=== PATIENT | female | born 1990 | race Caucasian/White ===

== ENCOUNTER 2018-03-06 13:45 | Inpatient (IN) | payer OTHER, MEDICAID ==
[~2018-03-06] VITALS: Ht 167.6 cm; Wt 101.6 kg
[2018-03-06] MEDS ORDERED: OXYTOCIN/0.9 % SODIUM CHLORIDE 1,000 ML IV SCH (14:38)
[2018-03-06] MEDS ORDERED: TERBUTALINE SULFATE 1 MG/ML VIAL SUBCUT ONE (14:45)
[2018-03-06] MEDS ORDERED: NALBUPHINE HCL 10 MG/ML AMP IM PRN (14:45)
[2018-03-06] MEDS ORDERED: NALBUPHINE HCL 10 MG/ML AMP IVP PRN (14:45)
[2018-03-06 15:25] VITALS: BP_SYST 133
[2018-03-06 15:37] LABS: BASOPHILS % (AUTO) 0.1 % (0.0-2.0); EOSINOPHILS # (AUTO) 0.2 K/uL (0.0-0.4); EOSINOPHILS % (AUTO) 1.2 % (0.0-4.0); HEMATOCRIT 39.8 % (36-48); LYMPHOCYTES # (AUTO) 2.3 K/uL (1.0-5.5); LYMPHOCYTES % (AUTO) 17.1 % (20.5-51.5); MEAN CORPUSCULAR HEMOGLOBIN 29 pg (27-31); MEAN CORPUSCULAR HGB CONC 33 % (32-36); MEAN CORPUSCULAR VOLUME 88 fL (79.0-98.0); MONOCYTES # (AUTO) 0.9 K/uL (0.0-1.0); MONOCYTES % (AUTO) 6.3 % (1.7-9.3); NEUTROPHILS # (AUTO) 10.2 K/uL (1.8-7.7); NEUTROPHILS % (AUTO) 75.3 % (40.0-70.0); PLATELET COUNT (AUTO) 346 K/uL (130-430); RED BLOOD CELL COUNT(AUTO) 4.53 MIL/uL (4.2-6.2); RED CELL DISTRIBUTION WIDTH 17.1 % (9.0-15.0); WHITE BLOOD COUNT (AUTO) 13.6 K/uL (4.8-10.8)
[2018-03-06] MEDS: LR 1,000 ML IV SCH (22:30)
[2018-03-07] MEDS: LR 1,000 ML IV SCH ×2 (04:50→06:35)
[2018-03-07] MEDS ORDERED: FENT2mCg/mL-ROPIVA0.2%/NS EPID 150 ML EP SCH (09:30)
[2018-03-07] MEDS ORDERED: ROPIVACAINE 0.2% 100 ML ONE ×2 (09:32→16:54)
[2018-03-07] MEDS ORDERED: fentaNYL CITRATE/PF 100 MCG/2 ML AMP ONE (09:32)
[2018-03-07] MEDS ORDERED: D5LR 1,000 ML IV ONE (17:15)
[2018-03-07] MEDS ORDERED: CEFAZOLIN 2 GM IVPB PREMIX 50 ML IV ONE (19:30)
[2018-03-07] MEDS ORDERED: LR 1,000 ML IV SCH (19:52)
[2018-03-07] MEDS ORDERED: OXYTOCIN/0.9 % SODIUM CHLORIDE 1,000 ML IV ONE (19:52)
[2018-03-07] MEDS ORDERED: MORPHINE SULFATE 10 MG/ML VIAL IVP PRN (20:00)
[2018-03-07] MEDS ORDERED: OXYCODONE/ACETAMINOPHEN 5-325 TABLET PO PRN (20:00)
[2018-03-07] MEDS ORDERED: LANOLIN 7 GM OINT. TP PRN (20:00)
[2018-03-07] MEDS ORDERED: BISACODYL 10 MG/SUPPOSITORY RC PRN (20:00)
[2018-03-07] MEDS ORDERED: ANUSOL 1 EA SUPP.RECT (PREPARATION H) RC PRN (20:00)
[2018-03-07] MEDS ORDERED: MORPHINE SULFATE 10MG/10ML PF AMP EP SCH (20:30)
[2018-03-07] MEDS ORDERED: NALBUPHINE HCL 10 MG/ML AMP IVP PRN (20:30)
[2018-03-07] MEDS ORDERED: KETOROLAC TROMETHAMINE 60 MG/2 ML VIAL IM PRN (20:30)
[2018-03-07] MEDS ORDERED: fentaNYL CITRATE/PF 100 MCG/2 ML AMP IVP PRN ×2 (20:30)
[2018-03-07] MEDS ORDERED: NALOXONE HCL 0.4 MG/ML AMP (NARCAN) IVP PRN ×2 (20:30)
[2018-03-07] MEDS ORDERED: DIPHENHYDRAMINE INJ 50 MG/ML VIAL IVP PRN (20:30)
[2018-03-07] MEDS ORDERED: ONDANSETRON HCL 4 MG/2 ML VIAL IVP PRN (20:30)
[2018-03-07 20:55] VITALS: BP_SYST 128
[2018-03-07] MEDS ORDERED: TEMAZEPAM 15 MG CAPSULE PO PRN (21:00)
[2018-03-08 07:18] LABS: HEMATOCRIT 32.2 % (36-48); HEMOGLOBIN 10.7 g/dL (12.0-16.0); MEAN CORPUSCULAR HEMOGLOBIN 29 pg (27-31); MEAN CORPUSCULAR HGB CONC 33 % (32-36); MEAN CORPUSCULAR VOLUME 88 fL (79.0-98.0); PLATELET COUNT (AUTO) 228 K/uL (130-430); RED BLOOD CELL COUNT(AUTO) 3.68 MIL/uL (4.2-6.2); RED CELL DISTRIBUTION WIDTH 16.8 % (9.0-15.0); WHITE BLOOD COUNT (AUTO) 17.1 K/uL (4.8-10.8)
[2018-03-08 09:11] LABS: BAND % (MANUAL) 11 % (0-6); LYMPHOCYTES % (MANUAL) 7 % (20-46); MONOCYTES % (MANUAL) 4 % (0-11)
[2018-03-08 09:12] LABS: BASOPHILS % (MANUAL) 0 % (0-2); EOSINOPHILS % (MANUAL) 0 % (0-7)
[2018-03-08] MEDS: SENNOSIDES/DOCUSATE SODIUM 1 TAB TABLET(SENOKOT-S) PO PRN (12:17)
[2018-03-08] MEDS: DOCUSATE SODIUM 100 MG CAPSULE PO PRN ×2 (12:17→23:42)
[2018-03-08] MEDS: IBUPROFEN 600 MG TABLET PO PRN ×3 (12:17→23:41)
[2018-03-08] MEDS: SIMETHICONE 80 MG TAB.CHEW PO PRN (12:18)
[2018-03-09] MEDS: IBUPROFEN 600 MG TABLET PO PRN ×4 (06:02→23:40)
[2018-03-09] MEDS: DOCUSATE SODIUM 100 MG CAPSULE PO PRN ×3 (09:40→23:41)
[2018-03-09] MEDS: OXYCODONE/ACETAMINOPHEN 5-325 TABLET PO PRN ×2 (16:00→23:41)
[2018-03-09] MEDS: SIMETHICONE 80 MG TAB.CHEW PO PRN (16:00)
--- NOTE | 2018-03-09 17:20 | NUR ---
Dietitian Recommendations * Recommend continuing regular diet per LP, RD Please refer to Nutrition Assessment for details.
[2018-03-10] MEDS: IBUPROFEN 600 MG TABLET PO PRN ×2 (06:07→13:18)
[2018-03-10] MEDS: OXYCODONE/ACETAMINOPHEN 5-325 TABLET PO PRN (10:14)
[2018-03-10] MEDS: SIMETHICONE 80 MG TAB.CHEW PO PRN (13:17)
[2018-03-10] MEDS: SENNOSIDES/DOCUSATE SODIUM 1 TAB TABLET(SENOKOT-S) PO PRN (13:17)
[2018-03-10] MEDS: DOCUSATE SODIUM 100 MG CAPSULE PO PRN (13:17)
== END 2018-03-10 14:58 | disposition home or self-care (01) | DRG 788 ==
LOC: SPU 13:45 → OBSVTOIN 14:38 → SPU 03-07 21:00 → SMU 03-09 15:27 → SPU 03-09 16:07
PROVIDERS: ADMIT Obstetrics & Gynecology; ATTEND Obstetrics & Gynecology
PROC: 10D00Z1 Extraction of Products of Conception, Low, Open Approach (ICD-10-PCS; principal; 2018-03-07 19:30)
DX: O62.2 Other uterine inertia (principal); O24.429 Gestational diabetes mellitus in childbirth, unspecified control; Z3A.38 38 weeks gestation of pregnancy; Z37.0 Single live birth
CPT/HCPCS: 36415; 81002-TC; 82947-TC; 82962; 85007; 85025; 85027; 86592; 86886; 86900; 86901; 94760; G0378; J0690; J2590; J2795; J3010; J7120